=== PATIENT | male | born 1950 | race Hispanic/Latino ===

== ENCOUNTER 2018-05-12 16:58 | Emergency (ER) | payer MEDICARE ==
[~2018-05-12] VITALS: Ht 172.7 cm; Wt 79.4 kg
--- OUTSIDE RECORDS SUMMARY | 2018-05-12 17:01 | XMS REPORT | Continuity of Care Document ---
Author Author [facility] Interface Address Unknown Phone Unavailable Problems Problem Status Onset Date Classification Date Reported Comments Source SUICIDAL Active 12/30/2015 [facility] Cardiac arrhythmias Active Problem 01/02/2016 [facility] Depression Resolved Problem 01/02/2016 [facility] Suicide intent score scale Active Problem 01/02/2016 [facility] Medications Medication Details Route Status Patient Instructions Ordering Provider Order Date Source Ativan 1 mg, 1 tab, Route: PO, Drug form: TAB, ONCE, Dosing Weight 76.1, kg, Priority: STAT, Start date: 12/30/15 14:33:00 CDT, Stop date: 12/30/15 14:33:00 CDTNotes: (Same as: Ativan) Inactive 12/30/2015 [facility] Acetaminophen 325 MG / Hydrocodone Bitartrate 5 MG Oral Tablet 1 tab, Route: PO, Drug Form: TAB, Dosing Weight 76.1, kg, ONCE, STAT, Start date: 12/30/15 10:14:00 CDT, Stop date: 12/30/15 10:14:00 CDTNotes: (Same as: [place] 325/5) Do not exceed 4gm/day of acetaminophen. Inactive 12/30/2015 [facility] Allergies, Adverse Reactions, Alerts Substance Category Reaction Severity Reaction type Status Date Reported Comments Source Immunizations Immunization Date Given Site Status Last Updated Comments Source Results Order Name Results Value Reference Range Date Interpretation Comments Source DRUG SCREEN U Dorothy Scr Negative *NA* (12/30/15 11:38 AM) Negative 12/30/2015 [facility] DRUG SCREEN U Benzodia Scr Negative *NA* (12/30/15 11:38 AM) Negative 12/30/2015 [facility] DRUG SCREEN UDS Note See Note *NA* (12/30/15 11:38 AM) 12/30/2015 [facility] DRUG SCREEN U Cocaine Scr Negative *NA* (12/30/15 11:38 AM) Negative 12/30/2015 [facility] DRUG SCREEN U Cannab Scr Negative *NA* (12/30/15 11:38 AM) Negative 12/30/2015 [facility] DRUG SCREEN U Opiate Scr Negative *NA* (12/30/15 11:38 AM) Negative 12/30/2015 [facility] DRUG SCREEN U Phencyc Scr Negative *NA* (12/30/15 11:38 AM) Negative 12/30/2015 [facility] DRUG SCREEN U Amph Scr Negative *NA* (12/30/15 11:38 AM) Negative 12/30/2015 [facility] CARDIAC ENZYMES Troponin-I null 0.00 - 0.40 12/30/2015 [facility] CHEM PANEL Bili Indirect 0.8 mg/dL 0.0 - 1.0 12/30/2015 [facility] CHEM PANEL Globulin 2.9 g/dL 2.0 - 4.0 12/30/2015 [facility] CHEM PANEL A/G Ratio 1.3 0.7 - 1.6 12/30/2015 [facility] CHEM PANEL Alk Phos 83 unit/L 39 - 136 12/30/2015 [facility] CHEM PANEL ALT 21 unit/L 0 - 65 12/30/2015 [facility] CHEM PANEL AST 22 unit/L 0 - 37 12/30/2015 [facility] CHEM PANEL Bili Direct 0.2 mg/dL 0.0 - 0.3 12/30/2015 [facility] CHEM PANEL Bili Total 1.0 mg/dL 0.2 - 1.3 12/30/2015 [facility] CHEM PANEL Total Protein 6.7 g/dL 6.4 - 8.4 12/30/2015 [facility] CHEM PANEL Albumin Lvl 3.8 g/dL 3.5 - 5.0 12/30/2015 [facility] CHEM PANEL eGFR 101 mL/min/1.73m2 12/30/2015 Result Comment: The eGFR is calculated using the CKD-EPI formula. In most young, healthy individuals the eGFR will be >90 mL/min/1.73m2. The eGFR declines with age. An eGFR of 60-89 may be normal in some populations, particularly the elderly, for whom the CKD-EPI formula has not been extensively validated. Use of the eGFR is not recommended in the following populations: Individuals with unstable creatinine concentrations, including patients and those with serious co-morbid conditions. Patients with extremes in muscle mass or diet. The data above are obtained from the National Kidney Disease Education Program (NKDEP) which additionally recommends that when the eGFR is used in patients with extremes of body mass index for purposes of drug dosing, the eGFR should be multiplied by the estimated BMI. [facility] CHEM PANEL CO2 22 meq/L 24 - 32 12/30/2015 [facility] CHEM PANEL Calcium Lvl 9.1 mg/dL 8.5 - 10.5 12/30/2015 [facility] CHEM PANEL Glucose Lvl 110 mg/dL 70 - 99 12/30/2015 [facility] CHEM PANEL BUN 9 mg/dL 7 - 22 12/30/2015 [facility] CHEM PANEL Potassium Lvl 3.5 meq/L 3.5 - 5.1 12/30/2015 [facility] CHEM PANEL Chloride Lvl 104 meq/L 95 - 109 12/30/2015 [facility] CHEM PANEL Creatinine Lvl 0.68 mg/dL 0.50 - 1.40 12/30/2015 [facility] CHEM PANEL Sodium Lvl 138 meq/L 135 - 145 12/30/2015 [facility] CHEM PANEL AGAP 15.5 meq/L 10.0 - 20.0 12/30/2015 [facility] HEMATOLOGY Segs-Bands # 5.7 K/CMM 1.5 - 8.1 12/30/2015 [facility] HEMATOLOGY Eosinophils 0.3 % 0.0 - 4.0 12/30/2015 [facility] HEMATOLOGY Basophils 0.7 % 0.0 - 1.0 12/30/2015 [facility] HEMATOLOGY Basophils # 0.1 K/CMM 0.0 - 0.2 12/30/2015 [facility] HEMATOLOGY Monocytes # 0.7 K/CMM 0.0 - 0.8 12/30/2015 [facility] HEMATOLOGY Monocytes 8.1 % 2.0 - 12.0 12/30/2015 [facility] HEMATOLOGY Lymphocytes 23.7 % 20.0 - 40.0 12/30/2015 [facility] HEMATOLOGY Lymphocytes # 2.0 K/CMM 1.0 - 5.5 12/30/2015 [facility] HEMATOLOGY Segs 67.2 % 45.0 - 75.0 12/30/2015 [facility] HEMATOLOGY MPV 8.6 fL 7.4 - 10.4 12/30/2015 [facility] HEMATOLOGY RDW 14.7 % 11.5 - 14.5 12/30/2015 [facility] HEMATOLOGY Platelet 244 K/CMM 133 - 450 12/30/2015 [facility] HEMATOLOGY Hgb 15.5 g/dL 14.0 - 18.0 12/30/2015 [facility] HEMATOLOGY RBC 4.98 M/CMM 4.70 - 6.10 12/30/2015 [facility] HEMATOLOGY MCHC 35.1 g/dL 32.0 - 36.0 12/30/2015 [facility] HEMATOLOGY MCH 31.2 pg 27.0 - 31.0 12/30/2015 [facility] HEMATOLOGY MCV 88.7 fL 80.0 - 94.0 12/30/2015 [facility] HEMATOLOGY Hct 44.2 % 42.0 - 54.0 12/30/2015 [facility] HEMATOLOGY WBC 8.5 K/CMM 3.7 - 10.4 12/30/2015 [facility] IMMUNOLOGY [place]-Hep C Ab Negative *NA* (12/30/15 11:00 AM) Negative 12/30/2015 [facility] TOXICOLOGY Ethanol Lvl null 12/30/2015 [facility] TOXICOLOGY Etoh (%) null 12/30/2015 [facility] TOXICOLOGY Salicylate Lvl <1.7 mg/dL 0.0 - 30.0 12/30/2015 [facility] TOXICOLOGY Acetaminoph Lvl <2
(12/30/15 11:00 AM) 10 - 20 12/30/2015 [facility] Chest 2 views DX Chest 2 views DX EXAM: XR CHEST 2 VIEWS DATE: 12/30/2015 10:27 AM CDT INDICATION: Shortness of Breath COMPARISON: Chest single view February 14, 2010 at 1741 hours TECHNIQUE: PA and lateral chest radiographs FINDINGS: The cardiac silhouette is of normal size and shape. Thoracic aorta is mildly tortuous. Calcification is seen within aortic arch. Pulmonary vascularity is normal. The lungs are clear. No effusions are identified. Few foreign bodies are present in the soft tissues of the chest. One is present over the anterior left lower chest and one is present over the anterior right mid chest. IMPRESSION: 1. There is no acute cardiac pulmonary disease identified. 2. Incidentally noted are retained radiopaque foreign bodies in the soft tissues over the right anterior midchest and left anterior lower chest. These are unchanged since February 2010. 12/30/2015 - - Read by: Rosalba Rosa MD Dictated Date/time: 12/30/15 11:30 Electronically Signed by: Rosalba Rosa MD 12/30/15 11:35 FINAL REPORT [facility] Vital Signs Vital Sign Value Date Comments Source Heart Rate 74 12/30/2015 [facility] Respitory Rate 18 12/30/2015 [facility] Temperature Oral (F) 98.4 F 12/30/2015 [facility] Systolic (mm Hg) 126 12/30/2015 [facility] Diastolic (mm Hg) 79 12/30/2015 [facility] Height 172.72 cm 12/30/2015 [facility] BMI Calculated 25.14 12/30/2015 [facility] Weight 75 12/30/2015 [facility] Heart Rate 70 12/30/2015 [facility] Systolic (mm Hg) 164 12/30/2015 [facility] Diastolic (mm Hg) 91 12/30/2015 [facility] Temperature Oral (F) 98.1 F 12/30/2015 [facility] Respitory Rate 18 12/30/2015 [facility] Systolic (mm Hg) 136 12/30/2015 [facility] Diastolic (mm Hg) 78 12/30/2015 [facility] Temperature Oral (F) 97.6 F 12/30/2015 [facility] Respitory Rate 18 12/30/2015 [facility] Heart Rate 81 12/30/2015 [facility] Encounters Location Location Details Encounter Type Encounter Number Reason For Visit Attending Provider ADM Date DC Date Status Source [facility] [id number] Marci Rubinabdiaziz 12/30/2015 12/30/2015 [facility] Procedures Procedure Code Date Perfomer Comments Source
--- OUTSIDE RECORDS SUMMARY | 2018-05-12 17:01 | XMS REPORT | Summary of Care ---
Author Author [facility] Organization [facility] Address Unknown Phone Unavailable Encounter AUSTIN Martin(LILIA) [id number] Date(s): 12/30/15 - 12/30/15 [facility] [address] [employer] provided by [facility] [place] [address]- Discharge Disposition: DC/TF To Psych Hosp Attending Physician: Marci Steve MD Vital Signs 1 2 3 Most recent to oldest [Reference Range]: 172.72 cm (12/30/15 4:00 PM) Height 98.4 DegF (12/30/15 5:41 PM) 98.1 DegF (12/30/15 3:06 PM) 97.6 DegF (12/30/15 12:35 PM) Temperature Oral [96.4-99.1 DegF] 126/79 mmHg (12/30/15 5:41 PM) 164/91 mmHg *HI* (12/30/15 3:06 PM) 136/78 mmHg (12/30/15 12:35 PM) Blood Pressure [90-140/60-90 mmHg] 18 BRMIN (12/30/15 5:41 PM) 18 BRMIN (12/30/15 3:06 PM) 18 BRMIN (12/30/15 12:35 PM) Respiratory Rate [14-20 BRMIN] 74 bpm (12/30/15 5:41 PM) 70 bpm (12/30/15 3:06 PM) 81 bpm (12/30/15 12:35 PM) Peripheral Pulse Rate [60-100 bpm] 75 kg (12/30/15 4:00 PM) Weight 25.14 m2 (12/30/15 4:00 PM) Body Mass Index Problem List Condition Effective Dates Status Health Status Informant Cardiac Active arrhythmias(Confirme d) Depression(Confirmed Resolved ) Suicide intent score Active scale(Confirmed) Allergies, Adverse Reactions, Alerts Substance Reaction Severity Status NKDA Active Medications acetaminophen-hydrocodone 325 mg-5 mg oral tablet 1 tab, Route: PO, Drug Form: TAB, Dosing Weight 76.1, kg, ONCE, STAT, Start date : 12/30/15 10:14:00 CDT, Stop date: 12/30/15 10:14:00 CDT Notes: (Same as: [place] 325/5) Do not exceed 4gm/day of acetaminophen. Start Date: 12/30/15 Stop Date: 12/30/15 Status: Completed Ativan 1 mg, 1 tab, Route: PO, Drug form: TAB, ONCE, Dosing Weight 76.1, kg, Priority: STAT, Start date: 12/30/15 14:33:00 CDT, Stop date: 12/30/15 14:33:00 CDT Notes: (Same as: Ativan) Start Date: 12/30/15 Stop Date: 12/30/15 Status: Completed Results ELECTROLYTES Most recent to 1 oldest [Reference Range]: Sodium Lvl [135-145 138 mEq/L mEq/L] (12/30/15 11:00 AM) Potassium Lvl 3.5 mEq/L [3.5-5.1 mEq/L] (12/30/15 11:00 AM) Chloride Lvl [95-109 104 mEq/L mEq/L] (12/30/15 11:00 AM) CO2 [24-32 mEq/L] 22 mEq/L *LOW* (12/30/15 11:00 AM) AGAP [10.0-20.0 15.5 mEq/L mEq/L] (12/30/15 11:00 AM) CHEM PANEL Most recent to 1 oldest [Reference Range]: Creatinine Lvl 0.68 mg/dL [0.50-1.40 mg/dL] (12/30/15 11:00 AM) eGFR 101 mL/min/1.73m2 1 *NA* (12/30/15 11:00 AM) BUN [7-22 mg/dL] 9 mg/dL (12/30/15 11:00 AM) Glucose Lvl [70-99 110 mg/dL mg/dL] *HI* (12/30/15 11:00 AM) Total Protein 6.7 g/dL [6.4-8.4 g/dL] (12/30/15 11:00 AM) Albumin Lvl [3.5-5.0 3.8 g/dL g/dL] (12/30/15 11:00 AM) Globulin [2.0-4.0 2.9 g/dL g/dL] (12/30/15 11:00 AM) A/G Ratio [0.7-1.6] 1.3 (12/30/15 11:00 AM) Calcium Lvl 9.1 mg/dL [8.5-10.5 mg/dL] (12/30/15 11:00 AM) ALT [0-65 unit/L] 21 unit/L (12/30/15 11:00 AM) AST [0-37 unit/L] 22 unit/L (12/30/15 11:00 AM) Alk Phos [39-136 83 unit/L unit/L] (12/30/15 11:00 AM) Bili Total [0.2-1.3 1.0 mg/dL mg/dL] (12/30/15 11:00 AM) Bili Direct [0.0-0.3 0.2 mg/dL mg/dL] (12/30/15 11:00 AM) Bili Indirect 0.8 mg/dL [0.0-1.0 mg/dL] (12/30/15 11:00 AM) 1Result Comment: The eGFR is calculated using the [...] from the National Kidney Disease Education Program ( NKDEP) which additionally recommends that when the eGFR is used in patients with extremes of body mass index for purposes of drug dosing, the eGFR should be mul tiplied by the estimated BMI. CARDIAC ENZYMES Most recent to 1 oldest [Reference Range]: Troponin-I <0.02 ng/mL [0.00-0.40 ng/mL] (12/30/15 11:00 AM) DRUG SCREEN Most recent to 1 oldest [Reference Range]: U Amph Scr Negative [Negative] *NA* (12/30/15 11:38 AM) U Dorothy Scr Negative [Negative] *NA* (12/30/15 11:38 AM) U Benzodia Scr Negative [Negative] *NA* (12/30/15 11:38 AM) U Cocaine Scr Negative [Negative] *NA* (12/30/15 11:38 AM) U Opiate Scr Negative [Negative] *NA* (12/30/15 11:38 AM) U Phencyc Scr Negative [Negative] *NA* (12/30/15 11:38 AM) U Cannab Scr Negative [Negative] *NA* (12/30/15 11:38 AM) UDS Note See Note *NA* (12/30/15 11:38 AM) TOXICOLOGY Most recent to 1 oldest [Reference Range]: Acetaminoph Lvl <2 [10-20] (12/30/15 11:00 AM) Salicylate Lvl <1.7 mg/dL [0.0-30.0 mg/dL] (12/30/15 11:00 AM) Etoh (%) <.003 % *NA* (12/30/15 11:00 AM) Ethanol Lvl <3 mg/dL *NA* (12/30/15 11:00 AM) IMMUNOLOGY Most recent to 1 oldest [Reference Range]: [place]-Hep C Ab Negative [Negative] *NA* (12/30/15 11:00 AM) HEMATOLOGY Most recent to 1 oldest [Reference Range]: WBC [3.7-10.4 K/CMM] 8.5 K/CMM (12/30/15 11:00 AM) RBC [4.70-6.10 4.98 M/CMM M/CMM] (12/30/15 11:00 AM) Hgb [14.0-18.0 g/dL] 15.5 g/dL (12/30/15 11:00 AM) Hct [42.0-54.0 %] 44.2 % (12/30/15 11:00 AM) MCV [80.0-94.0 fL] 88.7 fL (12/30/15 11:00 AM) MCH [27.0-31.0 pg] 31.2 pg *HI* (12/30/15 11:00 AM) MCHC [32.0-36.0 35.1 g/dL g/dL] (12/30/15 11:00 AM) RDW [11.5-14.5 %] 14.7 % *HI* (12/30/15 11:00 AM) Platelet [133-450 244 K/CMM K/CMM] (12/30/15 11:00 AM) MPV [7.4-10.4 fL] 8.6 fL (12/30/15 11:00 AM) Segs [45.0-75.0 %] 67.2 % (12/30/15 11:00 AM) Lymphocytes 23.7 % [20.0-40.0 %] (12/30/15 11:00 AM) Monocytes [2.0-12.0 8.1 % %] (12/30/15 11:00 AM) Eosinophils [0.0-4.0 0.3 % %] (12/30/15 11:00 AM) Basophils [0.0-1.0 0.7 % %] (12/30/15 11:00 AM) Segs-Bands # 5.7 K/CMM [1.5-8.1 K/CMM] (12/30/15 11:00 AM) Lymphocytes # 2.0 K/CMM [1.0-5.5 K/CMM] (12/30/15 11:00 AM) Monocytes # [0.0-0.8 0.7 K/CMM K/CMM] (12/30/15 11:00 AM) Basophils # [0.0-0.2 0.1 K/CMM K/CMM] (12/30/15 11:00 AM) Immunizations No data available for this section Procedures No data available for this section Social History Social History Type Response Smoking Status Never smoker; Ready to change: No; Concerns about tobacco use in household: No; Exposure to Tobacco Smoke None; Cigarette Smoking Last 365 Days No; Reg Smoking Cessation Counseling No Assessment and Plan No data available for this section
[2018-05-12] MEDS ORDERED: KETOROLAC TROMETHAMINE 60 MG/2 ML VIAL IM ONE (17:15)
[2018-05-12] MEDS ORDERED: ORPHENADRINE CITRATE 30 MG/ML VIAL IM ONE (17:15)
[2018-05-12] MEDS ORDERED: KETOROLAC TROMETHAMINE 30 MG/ML VIAL IV NR (18:00)
[2018-05-12] MEDS ORDERED: ORPHENADRINE CITRATE 30 MG/ML VIAL IV NR (18:00)
--- NOTE | 2018-05-12 18:34 | Diagnostic Imaging Report ---
Exams: Head and cervical spine CTs without IV contrast History: Trauma, fall from tree Comparison studies: None Technique: Axial images were obtained from the brain and cervical spine. Coronal and sagittal images reconstructed from the axial data. Dose modulation, iterative reconstruction, and/or weight based adjustment of the mA/kV was utilized to reduce the radiation dose to as low as reasonably achievable. Intravenous contrast: None Findings: Head CT: Scalp: No abnormalities. Bones: No fractures, blastic or lytic lesions. Extra-axial spaces: No masses. No fluid collections. Brain sulci: Appropriate for age. Ventricles: Normal in size and configuration. No hydrocephalus. Parenchyma: No abnormal densities. No masses, acute hemorrhage, acute or chronic vascular insults. Sellar/suprasellar region: No abnormalities. Craniocervical junction: The foramen magnum is patent. No Chiari one malformation. Included paranasal sinuses: Scattered nonspecific inflammatory mucosal thickening throughout the bilateral ethmoid air cells and maxillary sinuses with fluid levels in the bilateral maxillary sinuses. Cervical spine CT: Fractures: None. Soft tissues: No gross abnormalities. Atlantoaxial articulation: Intact. Alignment: Straightened cervical curvature. Cervicomedullary junction: No abnormalities. The foramen magnum is patent. Vertebrae: No infection or neoplasm. Surgical changes of discectomy and anterior posterior instrumented fusion at C4-C5 with anterior vertebral body screws and posterior rods fixated via bilateral mass screws without evidence of heart failure or hardware loosening. Degenerative changes: Mildly degenerated disks from C2 to C4 and from C5 to C7. Osteophyte complex at C4-C5 indents the thecal sac. No significant canal stenosis. Uncovertebral and facet arthrosis result in mild foraminal stenosis on the right at C3-C4, moderate right and mild left foraminal stenosis at C4-C5 and mild bilateral foraminal stenosis at C5-C6 and at C6-C7). Incidental findings: * 3 mm calcified right upper lobe granuloma * Scattered calcified atherosclerosis with calcified plaque in the right carotid bulb, carotid siphons and origin intradural segment of the right vertebral artery. * Chronic inflammatory changes in the underpneumatized bilateral mastoids. * Bilateral hypodense thyroid lobe nodules or cysts measure up to 6 mm on the right and 8 mm on the left. IMPRESSION: Head CT: 1. No fracture or acute intracranial abnormalities. 2. Nonspecific inflammatory changes in the paranasal sinuses which could be correlated for acute sinusitis. Cervical spine CT: 1. No cervical spine fracture or subluxation. 2. Surgical changes of C4-C5 discectomy and fusion. 3. Multilevel degenerative changes as described. 4. Please note, cannot likely evaluate ligament, spinal cord and or vascular abnormalities on the basis of this examination. Signed by: Dr. Paulino Conway M.D. on 05/12/2018 6:31 PM
--- NOTE | 2018-05-12 19:37 | Diagnostic Imaging Report ---
BILATERAL RIBS X-RAY INCLUDING PA CHEST - AP VIEWS HISTORY: ^pain s/p fall ^[id number] ^180 ^Y COMPARISON: None available. FINDINGS: Bones: No acute displaced fracture. Osseous alignment is within normal limits. Joints: The joint spaces are well-maintained. Soft tissues: Few a small subcentimeter radiopaque opacities overlying the right lateral chest wall and left upper quadrant suggestive of foreign bodies such as glass. The lungs are unremarkable. The cardiomediastinal silhouette is within normal limits with associated mild calcifications of the aortic arch. No pleural effusions or pneumothorax. IMPRESSION: No rib fractures. Few small radiopaque foreign bodies overlying the chest and left upper quadrant likely pieces of glass. Signed by: Dr. Constance Brown M.D. on 05/12/2018 7:34 PM
[2018-05-12] MEDS ORDERED: MORPHINE SULFATE 2 MG/ML SYR IV NR (19:45)
[2018-05-12] MEDS ORDERED: MORPHINE SULFATE INJ 4 MG/ML INJ ONE (19:59)
[2018-05-12 20:46] VITALS: BP 141/90
== END 2018-05-12 20:54 | disposition home or self-care (01) ==
LOC: ER 16:58
DX: G89.11 Acute pain due to trauma (principal); S06.0X9A Concussion with loss of consciousness of unspecified duration, initial encounter; S00.83XA Contusion of other part of head, initial encounter; R51 Headache; M54.2 Cervicalgia; M54.6 Pain in thoracic spine; M54.5 Low back pain; S70.311A Abrasion, right thigh, initial encounter; W14.XXXA Fall from tree, initial encounter; Y92.007 Garden or yard of unspecified non-institutional (private) residence as the place of occurrence of the external cause
CPT/HCPCS: 70450; 71111; 72125; 93005; 99284; J1885; J2270; J2360

== ENCOUNTER → 2020-02-22 | Day surgery (SDC) | payer MEDICARE, OTHER ==
[2020-02-18 11:23] LABS: BASOPHILS # (AUTO) 0.1 (0.0-0.1); BASOPHILS % 0.8 % (0.0-1.0); EOSINOPHILS # (AUTO) 0.3 (0.0-0.4); EOSINOPHILS % 4.5 % (0.0-6.0); HEMATOCRIT 44.5 % (38.2-49.6); HEMOGLOBIN 14.7 g/dL (14.0-18.0); LYMPHOCYTES # (AUTO) 2.3 (1.0-3.2); LYMPHOCYTES % 31.9 % (18.0-39.1); MEAN CORPUSCULAR HEMOGLOBIN 29.7 pg (28-32); MEAN CORPUSCULAR VOLUME 89.9 fL (81-99); MONOCYTES # (AUTO) 0.6 (0.2-0.8); MONOCYTES % 8.8 % (4.4-11.3); NEUTROPHILS # (AUTO) 3.9 (2.1-6.9); NEUTROPHILS % 53.5 % (38.7-80.0); PLATELET COUNT 288 x10e3/uL (140-360); RED BLOOD COUNT 4.95 x10e6/uL (4.3-5.7); RED CELL DISTRIBUTION WIDTH 13.8 % (11.7-14.4)
[~2020-02-22] MED LIST: CLONAZEPAM0.5 MG PO; CYMBALTA30 MG PO; LIDOCAINE HCL 2% LOCAL INJ 5 ML SDV VIAL INJ ONE; MIDAZOLAM HCL 2 MG/2 ML VIAL ONE; NORCO 10-325 T1 EACH PO; PROPOFOL IV EMULSION 10 MG/ML 20 ML VIAL ONE
[2020-02-22 10:15] VITALS: BP 122/83
== END | disposition home or self-care (01) ==
LOC: OR 06:48
PROVIDERS: ATTEND Internal Medicine Gastroenterology
DX: Z12.11 Encounter for screening for malignant neoplasm of colon (principal); D12.0 Benign neoplasm of cecum; K57.30 Diverticulosis of large intestine without perforation or abscess without bleeding; K64.8 Other hemorrhoids; F41.9 Anxiety disorder, unspecified; Z01.810 Encounter for preprocedural cardiovascular examination; Z01.812 Encounter for preprocedural laboratory examination; Z11.59 Encounter for screening for other viral diseases
CPT/HCPCS: 36415; 45385; 85025; 88305; 93005; J2001; J2250; J2704